=== PATIENT | male | born 1985 | race Caucasian/White ===

== ENCOUNTER → 2017-05-09 | Day surgery (SDC) | payer OTHER ==
[~2017-05-09] VITALS: Ht 179.1 cm; Wt 124.6 kg
[2017-05-09] VITALS (8 sets, daily range): BP systolic 110–140; BP diastolic 52–92; PULSE 81–96; RESP 12–20; O2SAT 94–98
[~2017-05-09] MED LIST: Bupivacaine-MPF 0.5% 30 mL Inj INFILTRATE ONE; Dexamethasone 4 mg/mL Inj IVPUSH PRN; Dexamethasone 4 mg/mL Inj ONE; EPHEDrine Sulfate 50 mg/mL Inj IVPUSH PRN; HYDROcodone-APAP 5-325 mg Tablet PO PRN; HYDROmorphone 1 mg/mL Inj IVPUSH PRN; Ketamine 10 mg/mL 20 mL Inj ONE; Lactated Ringer's 1,000 ML IV SCH; Lactated Ringer's 500 ML IV PRN; Levofloxacin 500 mg/100 mL D5W IV ONE; Levofloxacin 500 mg/100 mL D5W IV SCH; MetoCLOpramide 5 mg/mL 2 mL Inj IVPUSH PRN; Ondansetron 2 mg/mL 2 mL Inj IVPUSH PRN; Ondansetron 2 mg/mL 2 mL Inj ONE; Phenylephrine 10,000 mCg/mL Inj IVPUSH PRN; Propofol 10,000 mCg/mL 20 mL Inj ONE; fentaNYL-PF 50 mCg/mL 2 mL Inj IVPUSH PRN
--- NOTE | 2017-05-09 08:36 | PCM.HPANE ---
Patient Data Surgeon Admitting Provider: Attending Provider:Pearl Jurado MD Primary Care Physician:Gareth Other Provider:Marina Rosenbaum Anesthesia Reason for Visit Phimosis Ht/WT & BMI Height (Feet): 5 Height (Inches): 10.5 Weight (Kilograms): 125.9 Body Mass Index 39.00 Allergies Coded Allergies: Penicillins (Verified Allergy, Severe, DIFFICULTY BREATHING, 05/02/17) Uncoded Allergies: PABA (Allergy, Intermediate, Rash, 05/02/17) Past Anesthesia History Anesthesia History: Denies:: Abnormal Airway, Anesthesia Reactions, Difficult Intubation, Fam Anesthesia Reaction, Fam Malignant Hypertherm, Malignant Hyperthermia Diabetes History Hx Diabetes?: No MRSA MRSA: No Medications Hypertension Medication: No Home Meds Incl Beta Heavenly: No No Active Prescriptions or Reported Meds History History of ENT Problems?: No HEENT History: Denies:: Abnormal Airway Difficult Intubation Dysphagia Hearing Problem Sinus Problem TMJ Denture Type: None Teeth Condition: Within Normal Limits Hx of Heart Problems?: Yes Cardiovascular History: Denies:: AICD Abdominal Aortic Aneurism Atrial Fibrillation Cardiac Surgery Chest Pain Congestive Heart Failure Coronary Artery Disease Edema Heart Murmur Hypertension Irregular Heartbeat Pacemaker Peripheral Vascular Rheumatic Fever Thrombophlebitis Valvular Heart Disease Hx of Respiratory Problem?: Yes (bmi 39) Respiratory History: Denies:: Pneumonia Pulmonary Embolism Tuberculosis Use of C-PAP Machine Use of Inhalers / NEBS Hx Neurologic Problems?: No Neurological History: Denies:: Alzheimer's Disease CVA Dementia Dizziness Headaches Parkinson's Disease Seizures TIA Hx of GI Problems?: No Gastrointestinal History: Denies:: Cirrhosis Diverticulitis Gall Bladder Disease Gastroesphageal Reflux Gastrointestinal Bleeding Heartburn Hepatitis Hiatal Hernia Liver Disease Rectal Bleeding Hx of Problems?: No HX of Peritoneal Dialysis: No Male Hx: Denies:: Prostate Problems Scrotal Mass Testicular Surgery Skin History: Denies:: History Skin Disorders? Pressure Ulcers Hx Musculoskeletal Problems?: No Musculoskeletal History: Denies:: Back Injury Degenerative Joint Joint Replacement Musculoskeletal Trauma Osteoarthritis Rheumatoid Arthritis Hx of Psycho/Social Problems?: No Hx Surgeries?: No Other History: Denies:: Cancer Endocrine Disease Hospitalization Thyroid Disease History Blood Transfusions: Positive for:: Accept Blood Products? Denies:: Blood Transfusions Hx Diabetes: No Hx Alcohol Use: NoHx Substance Use: NoHave You Smoked inLast 12 mo: Yes ( vapor 16% nicotine level) Stop/Bang Treated for Sleep Apnea?: No Do You Have a CPAP Machine?: No S-Snoring: Do You Snore Loudly: No T-Tired: feel tired, fatigued: Yes O-Obsered: Observed not breath: No P-Blood Pressure: treated: No B- Body Mass Index > 35 kg/m2: No A- Age over 50: No N- Neck Large Circumference: Yes G- Gender Male: No CARLOTTA Total Score: 2 CARLOTTA Risk Assessment: Low Risk, <3 Yes Risk Assessment Category Category 1A: Patient has history of documented sleep apnea, and HAS NOT received any narcotic, sedative or anesthesia administration during this stay. Category 1B: Patient has history of documented sleep apnea, and HAS received any narcotic , sedative or anesthesia administration during this stay Category 2: Patient has SUSPECTED Obstructive Sleep Apnea, and HAS received any narcotic , sedative or anesthesia administration during this stay. Category 3: Patient has SUSPECTED Obstructive Sleep Apnea and HAS NOT received narcotic, sedative or anesthesia administration during this stay. Category 4: Outpatient in Procedural Areas with known sleep apnea or who screen positive for High Risk via the STOP/BANG questionnaire. Exam Exam General Appearance: Alert, Oriented X3, Cooperative, No Acute Distress HEENT/AIRWAY: MP 2 Lungs: Clear to Auscultation, Normal Air Movement Heart: Exam Unremarkable, Regular Rate/Rhythm, No Murmurs/Rubs/Gallops Plan Impression Patient chart reviewed, patient interviewed and anesthestic plan with risks, benefits, and alternatives discussed, and informed consent obtained. ASA Physical Status: ASA3 Severe Disease (BMI 39) Anesthetic Plan: GA Bene/Risks/Altern/Consents: Yes HP Complete Prior to Induction: Yes José Miguel Gonzalez MD May 09, 2017 08:36
[2017-05-09] MEDS: Lactated Ringer's 1,000 ML IV SCH ×2 (09:15→11:51)
--- NOTE | 2017-05-09 13:39 | PCM.ANEP1 ---
Post Anesthesia PACU Phase 1 Assessment Vital Signs Vital Signs Date Time Temp Pulse Resp B/P Pulse Ox O2 Delivery O2 Flow Rate FiO2 05/09/17 13:20 36 88 12 123/81 96 Room Air 05/09/17 13:19 81 16 125/80 96 Room Air 05/09/17 13:15 84 14 128/52 95 Room Air 05/09/17 13:05 83 13 110/92 96 Room Air 05/09/17 13:00 94 12 136/68 97 Simple Mask 10 05/09/17 12:56 36.3 96 20 136/77 96 Simple Mask 10 05/09/17 09:40 36.3 90 18 140/92 98 Room Air Anesthetic Administered: GA Level of Alertness: Awake, talking QUESADA's with Equal Strength: Yes Pain: No Nausea or Vomiting: No CV Function & Hydration Stable: Yes Airway Device: Oralpharangeal Airway Oxygen Delivery: Simple Mask Lungs: Clear to Auscultation, Normal Air Movement Dermatome Level: Full Sensation PACU Phase 2 Assessment Complications: No Follow up Care: No Patient Instructions Provided: N/A José Miguel Gonzalez MD May 09, 2017 13:39
--- NOTE | 2017-05-09 15:17 | OP ---
[address] [address] OPERATIVE REPORT PATIENT: FARRAH ROMERO : 1985 MR#: [id number] ADMIT: 05/09/2017 JOB ID: [id number] DATE OF SURGERY: 05/09/2017 SURGEON: Pearl Jurado M.D. PREOPERATIVE DIAGNOSIS(ES): POSTOPERATIVE DIAGNOSIS(ES): 1. Phimosis. 2. Tight frenulum. POSTOPERATIVE DIAGNOSIS(ES): 1. Phimosis. 2. Tight frenulum. PROCEDURE PERFORMED: 1. Circumcision. 2. Frenulectomy. ENGINEERING AND OPERATIONS DIRECTOR: None. FINDINGS: 1. Severe phimosis. 2. Tight frenulum. ANESTHESIA: 1. General. 2. Dorsal penile nerve block and local anesthetic with 0.5% Marcaine. ESTIMATED BLOOD LOSS: Less than 20 mL. DRAINS: None. SPECIMENS: Foreskin. COMPLICATION: None. CONDITION: Stable. INDICATIONS FOR PROCEDURE: The patient is a 32-year-old gentleman with phimosis and a tight frenulum. He wishes to undergo the aforementioned procedure. DESCRIPTION OF PROCEDURE: After informed consent was obtained, the patient was taken to the operating room. A time-out was performed identifying correct patient, surgical site and procedure. General anesthesia has been induced. He was given intravenous antibiotics just prior to the start of the procedure. He was placed in the supine position and all pressure points were identified and appropriately padded. His genitals were then prepped and draped in the usual sterile fashion. Betadine was also used under the foreskin for cleansing the surgical site. The foreskin was fairly difficult to retract but it was done so after a dorsal penile nerve block was performed. A circumcising incision was made approximately 1 cm proximal to the coronal ridge. It was incised with a 15 blade. Bovie electrocautery was used to incise the subcutaneous tissues. The foreskin was then subsequently replaced over the glans and 1 cm distal to the impression of the coronal ridge, with the foreskin gently replaced over the glans, an incision was made with a 15 blade. The circumferential ring of tissue was then removed with Bovie electrocautery. The skin was then reapproximated at the 12, 6, 3 and 9 o'clock positions with 3-0 chromic. The intervening quadrants were also sutured with 3-0 chromic in an interrupted fashion. Next attention was turned to the tight frenulum. A curved Kiarra was used to crimp this tissue. Bovie electrocautery was then used to incise this area. One interrupted stitch was placed at the deepest portion of the frenulectomy. There was excellent hemostasis. The wound was then dressed with Xeroform gauze, Ron gauze, and Coban dressing for a soft cast. He was reversed from general anesthesia and taken to the PACU in stable condition. STEVAN
== END | disposition home or self-care (01) ==
LOC: SAS 09:11
PROVIDERS: ATTEND Urology
DX: N47.1 Phimosis (principal); F17.290 Nicotine dependence, other tobacco product, uncomplicated
CPT/HCPCS: 54161; 54164; J1100; J2405; J2704; J2765; J3010; J7120